=== PATIENT | male | born 1940 | race Caucasian/White ===

== ENCOUNTER 2020-08-22 15:33 | Inpatient (IN) | payer MEDICARE, MEDICAID ==
[~2020-08-22] VITALS: Ht 177.8 cm; Wt 45.4 kg
[~2020-08-22 15:33] MED LIST: DOCU-150 PO; GABA-531 PO; HYDR-523 PO; MEGE400O PO; METO-293 PO; OLAN5TAB26 PO; PANT40TA4 PO; PHEN100C4 PO; SERT100T PO
[2020-08-22] MEDS ORDERED: IPRATROPIUM BROMIDE (0.02%) 0.5MG/2.5ML NEB HHN STA (16:34)
[2020-08-22] MEDS ORDERED: ALBUTEROL (0.083%) 2.5MG/3ML NEB HHN STA (16:34)
[2020-08-22 17:03] LABS: BG BASE EXCESS 0.3 mmol/L (-2.0-2.0); BG CARBOXYHEMOGLOBIN 0.1 % (0.5-1.5); BG DEOXYHEMOGLOBIN 1.2 % (0.0-5.0); BG HCO3 ACT 19.3 mmol/L (22.0-26.0); BG METHEMOGLOBIN 0.2 % (0.0-1.5); BG OXYGEN SATURATION 98.8 % (92.0-98.5); BG OXYHEMOGLOBIN 98.5 % (94.0-97.0); BG PCO2 19.1 mmHg (35.0-45.0); BG PH 7.622 (7.350-7.450); BG PO2 125.9 mmHg (75.0-100.0); BG SAMPLE SITE RIGHT RADIAL; BG TOTAL HEMOGLOBIN 13.3 g/dL (12.0-18.0); BG VENT MODE NASAL CANNULA
[2020-08-23 04:40] LABS: CHLORIDE 106 mEq/L (98-107); HEMATOCRIT. 36.6 % (42.0-52.0); HEMOGLOBIN. 11.8 g/dL (14.0-18.0); MEAN CORPUSCULAR HEMOGLOBIN 26.3 pg (28.0-32.0); MEAN CORPUSCULAR VOLUME 81.3 fL (80.0-94.0); MEAN PLATELET VOLUME 7.2 fl (7.4-10.4); PLATELET 447 x1000/uL (130-400); RED BLOOD CELL COUNT 4.51 mill/uL (4.7-6.1); RED CELL DISTRIBUTION WIDTH 15.1 % (11.6-14.6)
[2020-08-23] MEDS ORDERED: SODIUM CHLORIDE 0.9% 1,000 ML IV ONE (05:15)
[2020-08-23 05:33] LABS: PLATELET ESTIMATE SLIGHTLY INCREASED
[2020-08-23] MEDS ORDERED: GABA-531 MT (10:17)
[2020-08-23] MEDS ORDERED: FINA5TAB11 MT (10:17)
[2020-08-23] MEDS ORDERED: TAMS-11 MT (10:17)
[2020-08-23] MEDS ORDERED: POLY17PO28 PO (10:17)
[2020-08-23 10:30] VITALS: BP 96/61
[2020-08-23] MEDS ORDERED: ACETAMINOPHEN 325MG TABLET PO PRN ×2 (11:00)
[2020-08-23] MEDS ORDERED: ONDANSETRON HCL 4MG/2ML INJ IV PRN (11:00)
[2020-08-23] MEDS ORDERED: GUAIFENESIN 200MG/10ML SUGAR FREE UDC PO PRN (11:00)
[2020-08-23] MEDS ORDERED: CLONIDINE 0.1MG TABLET PO PRN (11:00)
[2020-08-23] MEDS ORDERED: DIPHENHYDRAMINE 50MG/ML VIAL IV PRN (11:00)
[2020-08-23 12:00] VITALS: BP_SYST 111; BP_SYST 96; BP_DIAS 41; BP_DIAS 61
[2020-08-23] MEDS ORDERED: MVI, ADULT NO.1 10 ML, FOLIC ACID 1 MG, THIAMINE HCL 100 MG in SODIUM CHLORIDE 0.9% 1,0... IV SCH ×4 (12:00)
[2020-08-23 14:15] VITALS: BP 99/61
[2020-08-23] MEDS: ENOXAPARIN 40MG/0.4ML SYR SUBCUT SCH (14:33)
[2020-08-23] MEDS: LEVOFLOXACIN 500MG PREMIX 100 ML IV SCH (14:33)
[2020-08-23] MEDS: SODIUM CHLORIDE 0.9% INJ 3ML FLUSH IVF SCH ×2 (14:34→21:36)
[2020-08-23 16:00] VITALS: BP 110/72
[2020-08-23] MEDS ORDERED: MAGNESIUM HYDROXIDE 400MG/5ML 30ML UDC PO PRN (17:45)
[2020-08-23] MEDS: LORAZEPAM 0.5MG TABLET PO PRN (18:51)
[2020-08-23 20:28] VITALS: BP 112/44
[2020-08-23] MEDS ORDERED: ZOLPIDEM TARTRATE 5MG TABLET PO PRN (21:00)
[2020-08-23] MEDS: INSULIN LISPRO 100 UNITS/ML SUBCUT SCH (21:00)
[2020-08-23] MEDS: GABAPENTIN 300MG CAPSULE PO SCH (21:35)
[2020-08-23] MEDS: BLOOD SUGAR DIAGNOSTIC STRIP TEST SCH (21:36)
[2020-08-24 04:00] VITALS: BP 120/88
[2020-08-24] MEDS: LORAZEPAM 0.5MG TABLET PO PRN (04:58)
[2020-08-24] MEDS: GABAPENTIN 300MG CAPSULE PO SCH ×3 (05:16→20:02)
[2020-08-24] MEDS: SODIUM CHLORIDE 0.9% INJ 3ML FLUSH IVF SCH ×3 (05:16→20:02)
[2020-08-24] MEDS: BLOOD SUGAR DIAGNOSTIC STRIP TEST SCH ×4 (05:48→20:02)
[2020-08-24] MEDS: DEXTROSE 50% WATER 50ML SYRINGE IV PRN ×2 (05:56→11:25)
[2020-08-24 06:41] LABS: BASOPHILS % 0.3 % (0.0-2.0); CHLORIDE 111 mEq/L (98-107); EOSINOPHILS % 0.3 % (0.0-5.0); HEMATOCRIT. 34.4 % (42.0-52.0); HEMOGLOBIN. 11.4 g/dL (14.0-18.0); LYMPHOCYTES % 7.8 % (20.0-50.0); MEAN CORPUSCULAR HEMOGLOBIN 26.8 pg (28.0-32.0); MEAN CORPUSCULAR VOLUME 81.1 fL (80.0-94.0); MEAN PLATELET VOLUME 7.5 fl (7.4-10.4); MONOCYTES % 9.9 % (2.0-8.0); NEUTROPHILS % 81.7 % (40.0-76.0); PLATELET 382 x1000/uL (130-400); RED BLOOD CELL COUNT 4.24 mill/uL (4.7-6.1); RED CELL DISTRIBUTION WIDTH 15.2 % (11.6-14.6)
[2020-08-24] MEDS: INSULIN LISPRO 100 UNITS/ML SUBCUT SCH ×4 (07:10→20:03)
[2020-08-24 08:00] VITALS: BP 94/49
[2020-08-24] MEDS: FINASTERIDE 5MG TABLET PO SCH ×2 (09:00→09:02)
[2020-08-24] MEDS: DOCUSATE SODIUM 250MG CAPSULE PO SCH ×2 (09:00→09:02)
[2020-08-24] MEDS: TAMSULOSIN HCL 0.4MG SR CAPSULE PO SCH (09:00)
[2020-08-24] MEDS: ENOXAPARIN 40MG/0.4ML SYR SUBCUT SCH ×2 (09:00→09:01)
[2020-08-24 12:00] VITALS: BP 108/43
[2020-08-24] MEDS: LEVOFLOXACIN 500MG PREMIX 100 ML IV SCH (12:36)
[2020-08-24 16:00] VITALS: BP 104/54
[2020-08-24 20:45] VITALS: BP 103/46
[2020-08-25 04:00] VITALS: BP 105/48
[2020-08-25] MEDS: INSULIN LISPRO 100 UNITS/ML SUBCUT SCH ×3 (06:32→21:00)
[2020-08-25] MEDS: GABAPENTIN 300MG CAPSULE PO SCH ×3 (06:32→21:05)
[2020-08-25] MEDS: BLOOD SUGAR DIAGNOSTIC STRIP TEST SCH ×3 (06:32→21:06)
[2020-08-25] MEDS: SODIUM CHLORIDE 0.9% INJ 3ML FLUSH IVF SCH ×3 (06:32→21:06)
[2020-08-25 08:24] VITALS: BP 95/43
[2020-08-25] MEDS: FINASTERIDE 5MG TABLET PO SCH (08:31)
[2020-08-25] MEDS: TAMSULOSIN HCL 0.4MG SR CAPSULE PO SCH (08:32)
[2020-08-25] MEDS: DOCUSATE SODIUM 250MG CAPSULE PO SCH (08:33)
[2020-08-25] MEDS: ENOXAPARIN 40MG/0.4ML SYR SUBCUT SCH (08:33)
[2020-08-25 09:36] LABS: BG BASE EXCESS -0.4 mmol/L (-2.0-2.0); BG CARBOXYHEMOGLOBIN 0.8 % (0.5-1.5); BG DEOXYHEMOGLOBIN 2.7 % (0.0-5.0); BG FRACTION INSPIRED OXYGEN 21; BG HCO3 ACT 23.3 mmol/L (22.0-26.0); BG METHEMOGLOBIN 0.2 % (0.0-1.5); BG OXYGEN SATURATION 97.3 % (92.0-98.5); BG OXYHEMOGLOBIN 96.3 % (94.0-97.0); BG PCO2 35.1 mmHg (35.0-45.0); BG PH 7.439 (7.350-7.450); BG PO2 88.5 mmHg (75.0-100.0); BG SAMPLE SITE RIGHT BRACHIAL; BG VENT MODE ROOM AIR
[2020-08-25 12:00] VITALS: BP 86/48
[2020-08-25] MEDS: LEVOFLOXACIN 500MG PREMIX 100 ML IV SCH (12:12)
[2020-08-25] MEDS ORDERED: CEFTRIAXONE 1 G PREMIX 50 ML IV SCH (13:30)
[2020-08-25] MEDS: AZITHROMYCIN 500 MG TABLET PO SCH (15:42)
[2020-08-25] MEDS: CEFTRIAXONE 1,000 MG in DEXTROSE 5% WATER 50 ML IV SCH (15:42)
[2020-08-25 15:56] LABS: HEMATOCRIT. 34.8 % (42.0-52.0); HEMOGLOBIN. 11.7 g/dL (14.0-18.0); MEAN CORPUSCULAR VOLUME 80.5 fL (80.0-94.0); MEAN PLATELET VOLUME 7.2 fl (7.4-10.4); PLATELET 340 x1000/uL (130-400); RED BLOOD CELL COUNT 4.33 mill/uL (4.7-6.1); RED CELL DISTRIBUTION WIDTH 15.1 % (11.6-14.6)
[2020-08-25 16:00] VITALS: BP 100/57
[2020-08-25 16:36] LABS: CHLORIDE 109 mEq/L (98-107)
[2020-08-25 16:38] LABS: PLATELET ESTIMATE NORMAL
[2020-08-25] MEDS: IPRATROPIUM/ALBUTEROL 0.5-3(2.5)MG/3ML NEB HHN PRN (16:45)
[2020-08-25] MEDS: SODIUM CHLORIDE 10% FOR INH 15ML VIAL NEB INH SCH (16:48)
[2020-08-25 20:00] VITALS: BP 101/66
[2020-08-25] MEDS: GUAIFENESIN 600MG ER TABLET PO SCH (21:05)
[2020-08-25] MEDS: IPRATROPIUM/ALBUTEROL 0.5-3(2.5)MG/3ML NEB HHN SCH (21:53)
[2020-08-26] VITALS (7 sets, daily range): BP systolic 78–117; BP diastolic 36–66
[2020-08-26] MEDS: SODIUM CHLORIDE 3% FOR INH 4ML UD NEB INH SCH ×3 (02:10→21:23)
[2020-08-26] MEDS: IPRATROPIUM/ALBUTEROL 0.5-3(2.5)MG/3ML NEB HHN SCH ×4 (02:40→21:23)
[2020-08-26] MEDS: SODIUM CHLORIDE 0.9% INJ 3ML FLUSH IVF SCH ×3 (06:00→22:03)
[2020-08-26] MEDS: GABAPENTIN 300MG CAPSULE PO SCH ×3 (06:00→22:03)
[2020-08-26] MEDS: BLOOD SUGAR DIAGNOSTIC STRIP TEST SCH ×4 (06:11→21:57)
[2020-08-26] MEDS: INSULIN LISPRO 100 UNITS/ML SUBCUT SCH ×4 (06:11→21:00)
[2020-08-26] MEDS: SODIUM CHLORIDE 10% FOR INH 15ML VIAL NEB INH SCH ×2 (07:43→14:40)
[2020-08-26] MEDS: BACITRACIN 15GM TUBE TOP SCH (10:23)
[2020-08-26] MEDS: TAMSULOSIN HCL 0.4MG SR CAPSULE PO SCH (10:23)
[2020-08-26] MEDS: ENOXAPARIN 40MG/0.4ML SYR SUBCUT SCH (10:23)
[2020-08-26] MEDS: DOCUSATE SODIUM 250MG CAPSULE PO SCH (10:23)
[2020-08-26] MEDS: FINASTERIDE 5MG TABLET PO SCH (10:24)
[2020-08-26] MEDS: AZITHROMYCIN 500 MG TABLET PO SCH (10:24)
[2020-08-26] MEDS: GUAIFENESIN 600MG ER TABLET PO SCH ×2 (10:24→22:03)
[2020-08-26] MEDS ORDERED: POTASSIUM CHLORIDE 20MEQ TABLET SR PO NR (10:45)
[2020-08-26] MEDS ORDERED: DEXT 5%/0.45% NACL KCL 10MEQ/L 1,000 ML IV ONE (14:00)
[2020-08-26] MEDS ORDERED: ALBUMIN HUMAN 25GM/500ML (5%) IV NR (14:00)
[2020-08-26] MEDS: ACETYLCYSTEINE 100MG/ML 10% VIAL 4ML INH SCH (14:31)
[2020-08-26] MEDS: CEFTRIAXONE 1,000 MG in DEXTROSE 5% WATER 50 ML IV SCH (15:06)
[2020-08-26 15:56] LABS: HEPATITIS B SURFACE ANTIGEN NEGATIVE
[2020-08-26 16:26] LABS: HEPATITIS A AB IGM NEGATIVE (NEGATIVE)
[2020-08-27] VITALS: BP 88/33
[2020-08-27] MEDS: ACETYLCYSTEINE 100MG/ML 10% VIAL 4ML INH SCH ×3 (02:10→12:53)
[2020-08-27] MEDS: IPRATROPIUM/ALBUTEROL 0.5-3(2.5)MG/3ML NEB HHN SCH ×3 (02:10→21:41)
[2020-08-27 04:00] VITALS: BP_SYST 88; BP_SYST 89; BP_DIAS 33; BP_DIAS 42
[2020-08-27] MEDS: GABAPENTIN 300MG CAPSULE PO SCH ×3 (05:48→22:34)
[2020-08-27] MEDS: SODIUM CHLORIDE 0.9% INJ 3ML FLUSH IVF SCH ×3 (05:48→22:35)
[2020-08-27] MEDS: BLOOD SUGAR DIAGNOSTIC STRIP TEST SCH (06:08)
[2020-08-27] MEDS: INSULIN LISPRO 100 UNITS/ML SUBCUT SCH (06:08)
[2020-08-27 08:00] VITALS: BP 96/41
[2020-08-27] MEDS: DOCUSATE SODIUM 250MG CAPSULE PO SCH (09:05)
[2020-08-27] MEDS: AZITHROMYCIN 500 MG TABLET PO SCH (09:05)
[2020-08-27] MEDS: GUAIFENESIN 600MG ER TABLET PO SCH ×2 (09:06→21:00)
[2020-08-27] MEDS: BACITRACIN 15GM TUBE TOP SCH (09:06)
[2020-08-27] MEDS: TAMSULOSIN HCL 0.4MG SR CAPSULE PO SCH (09:06)
[2020-08-27] MEDS: ENOXAPARIN 30MG/0.3ML SYR SUBCUT SCH (09:06)
[2020-08-27] MEDS: FINASTERIDE 5MG TABLET PO SCH (09:06)
[2020-08-27] MEDS: IPRATROPIUM/ALBUTEROL 0.5-3(2.5)MG/3ML NEB HHN PRN (09:17)
[2020-08-27] MEDS: SODIUM CHLORIDE 3% FOR INH 4ML UD NEB INH SCH (10:15)
[2020-08-27 12:00] VITALS: BP 95/36
[2020-08-27] MEDS: CEFTRIAXONE 1,000 MG in DEXTROSE 5% WATER 50 ML IV SCH (15:51)
[2020-08-27 16:00] VITALS: BP 89/37
[2020-08-27 20:00] VITALS: BP 99/44
[2020-08-28] VITALS: BP 83/33
[2020-08-28] MEDS: IPRATROPIUM/ALBUTEROL 0.5-3(2.5)MG/3ML NEB HHN SCH ×4 (02:17→20:46)
[2020-08-28] MEDS: ACETYLCYSTEINE 100MG/ML 10% VIAL 4ML INH SCH ×4 (02:17→20:47)
[2020-08-28 04:00] VITALS: BP 99/41
[2020-08-28 08:00] VITALS: BP 96/47
[2020-08-28 08:30] LABS: BASOPHILS % 0.2 % (0.0-2.0); EOSINOPHILS % 1.4 % (0.0-5.0); HEMATOCRIT. 33.2 % (42.0-52.0); HEMOGLOBIN. 10.8 g/dL (14.0-18.0); LYMPHOCYTES % 9.7 % (20.0-50.0); MEAN CORPUSCULAR HEMOGLOBIN 26.4 pg (28.0-32.0); MEAN CORPUSCULAR VOLUME 80.8 fL (80.0-94.0); MEAN PLATELET VOLUME 7.3 fl (7.4-10.4); NEUTROPHILS % 75.7 % (40.0-76.0); PLATELET 290 x1000/uL (130-400); RED CELL DISTRIBUTION WIDTH 15.5 % (11.6-14.6)
[2020-08-28 08:35] LABS: QFT MITOGEN VALUE 0.23 IU/mL (.); QFT TB GOLD PLUS Indeterminate (Negative); QFT TB1 AG VALUE 0.05 IU/mL (.)
[2020-08-28 08:58] LABS: CHLORIDE 109 mEq/L (98-107)
[2020-08-28] MEDS: DOCUSATE SODIUM 250MG CAPSULE PO SCH (11:19)
[2020-08-28] MEDS: TAMSULOSIN HCL 0.4MG SR CAPSULE PO SCH (11:20)
[2020-08-28] MEDS: GUAIFENESIN 600MG ER TABLET PO SCH ×2 (11:20→21:23)
[2020-08-28] MEDS: AZITHROMYCIN 500 MG TABLET PO SCH (11:20)
[2020-08-28] MEDS: FINASTERIDE 5MG TABLET PO SCH (11:20)
[2020-08-28] MEDS: BACITRACIN 15GM TUBE TOP SCH (11:20)
[2020-08-28] MEDS: ENOXAPARIN 30MG/0.3ML SYR SUBCUT SCH (11:23)
[2020-08-28 12:00] VITALS: BP 96/48
[2020-08-28] MEDS: GABAPENTIN 300MG CAPSULE PO SCH ×2 (13:36→21:23)
[2020-08-28] MEDS: SODIUM CHLORIDE 0.9% INJ 3ML FLUSH IVF SCH ×2 (13:36→21:23)
[2020-08-28 16:00] VITALS: BP 104/47
[2020-08-28] MEDS: CEFTRIAXONE 1,000 MG in DEXTROSE 5% WATER 50 ML IV SCH (16:03)
[2020-08-28] MEDS ORDERED: RIFAXIMIN 200MG TABLET PO SCH (17:15)
[2020-08-28] MEDS ORDERED: VANCOMYCIN 750 MG PREMIX 150 ML IV SCH (18:00)
[2020-08-28] MEDS: VANCOMYCIN 500 MG PREMIX 100 ML IV SCH (18:01)
[2020-08-28] MEDS: ETHAMBUTOL HCL 400MG TABLET PO SCH (18:02)
[2020-08-28] MEDS: ISONIAZID 300MG TABLET PO SCH (18:02)
[2020-08-28 20:00] VITALS: BP_SYST 33; BP_SYST 89; BP_DIAS 44
[2020-08-28] MEDS: RIFAMPIN 150MG CAPSULE PO SCH (20:00)
[2020-08-29] VITALS: BP 91/44
[2020-08-29] MEDS: IPRATROPIUM/ALBUTEROL 0.5-3(2.5)MG/3ML NEB HHN SCH ×4 (02:29→21:52)
[2020-08-29 04:00] VITALS: BP 90/44
[2020-08-29] MEDS: VANCOMYCIN 500 MG PREMIX 100 ML IV SCH ×3 (06:23→18:17)
[2020-08-29] MEDS: SODIUM CHLORIDE 0.9% INJ 3ML FLUSH IVF SCH ×2 (06:26→15:58)
[2020-08-29] MEDS: GABAPENTIN 300MG CAPSULE PO SCH ×3 (06:26→21:31)
[2020-08-29 08:00] VITALS: BP 108/55
[2020-08-29] MEDS ORDERED: PYRIMETHAMINE 25 MG PO SCH (09:00)
[2020-08-29] MEDS: ACETYLCYSTEINE 100MG/ML 10% VIAL 4ML INH SCH ×3 (09:48→21:52)
[2020-08-29] MEDS: ETHAMBUTOL HCL 400MG TABLET PO SCH ×2 (10:00→18:17)
[2020-08-29] MEDS: DOCUSATE SODIUM 250MG CAPSULE PO SCH (10:00)
[2020-08-29] MEDS: AZITHROMYCIN 500 MG TABLET PO SCH (10:00)
[2020-08-29] MEDS: TAMSULOSIN HCL 0.4MG SR CAPSULE PO SCH (10:01)
[2020-08-29] MEDS: GUAIFENESIN 600MG ER TABLET PO SCH ×2 (10:01→21:31)
[2020-08-29] MEDS: FINASTERIDE 5MG TABLET PO SCH (10:01)
[2020-08-29] MEDS: ISONIAZID 300MG TABLET PO SCH (10:02)
[2020-08-29] MEDS: RIFAMPIN 150MG CAPSULE PO SCH (10:02)
[2020-08-29] MEDS: ENOXAPARIN 30MG/0.3ML SYR SUBCUT SCH (10:02)
[2020-08-29] MEDS: PYRIDOXINE HCL 50MG TABLET PO SCH (10:02)
[2020-08-29] MEDS: BACITRACIN 15GM TUBE TOP SCH (10:03)
[2020-08-29 12:00] VITALS: BP 111/60
[2020-08-29] MEDS: CEFTRIAXONE 1,000 MG in DEXTROSE 5% WATER 50 ML IV SCH (15:57)
[2020-08-29] MEDS: PYRAZINAMIDE 500MG TABLET PO SCH (15:57)
[2020-08-29 16:00] VITALS: BP 109/56
[2020-08-29 20:00] VITALS: BP 99/48
[2020-08-30] VITALS (7 sets, daily range): BP systolic 94–126; BP diastolic 47–66
[2020-08-30] MEDS: IPRATROPIUM/ALBUTEROL 0.5-3(2.5)MG/3ML NEB HHN SCH ×4 (01:16→21:28)
[2020-08-30] MEDS: SODIUM CHLORIDE 0.9% INJ 3ML FLUSH IVF SCH ×4 (05:47→21:31)
[2020-08-30] MEDS: VANCOMYCIN 500 MG PREMIX 100 ML IV SCH (06:00)
[2020-08-30] MEDS: GABAPENTIN 300MG CAPSULE PO SCH ×3 (06:00→21:28)
[2020-08-30 07:02] LABS: CHLORIDE 101 mEq/L (98-107)
[2020-08-30] MEDS: ETHAMBUTOL HCL 400MG TABLET PO SCH ×2 (08:42→16:45)
[2020-08-30] MEDS: ISONIAZID 300MG TABLET PO SCH (08:42)
[2020-08-30] MEDS: GUAIFENESIN 600MG ER TABLET PO SCH ×2 (08:42→21:28)
[2020-08-30] MEDS: DOCUSATE SODIUM 250MG CAPSULE PO SCH (08:42)
[2020-08-30] MEDS: FINASTERIDE 5MG TABLET PO SCH (08:42)
[2020-08-30] MEDS: PYRAZINAMIDE 500MG TABLET PO SCH (08:42)
[2020-08-30] MEDS: AZITHROMYCIN 500 MG TABLET PO SCH (08:43)
[2020-08-30] MEDS: RIFAMPIN 150MG CAPSULE PO SCH (08:43)
[2020-08-30] MEDS: PYRIDOXINE HCL 50MG TABLET PO SCH (08:43)
[2020-08-30] MEDS: TAMSULOSIN HCL 0.4MG SR CAPSULE PO SCH (08:43)
[2020-08-30] MEDS: BACITRACIN 15GM TUBE TOP SCH (08:44)
[2020-08-30] MEDS: ENOXAPARIN 30MG/0.3ML SYR SUBCUT SCH (08:45)
[2020-08-30] MEDS ORDERED: PROCHLORPERAZINE 10MG/2ML VIAL IM PRN (09:45)
[2020-08-30] MEDS ORDERED: ONDANSETRON HCL 4MG TABLET PO PRN (09:45)
[2020-08-30] MEDS ORDERED: VANCOMYCIN 500 MG PREMIX 100 ML IV SCH (12:00)
[2020-08-30] MEDS: AZITHROMYCIN 250 MG TABLET PO SCH (12:57)
[2020-08-30] MEDS: ACETYLCYSTEINE 100MG/ML 10% VIAL 4ML INH SCH ×3 (13:25→21:34)
[2020-08-30] MEDS: ALPRAZOLAM 0.5 MG TABLET PO PRN (15:24)
[2020-08-31] MEDS: IPRATROPIUM/ALBUTEROL 0.5-3(2.5)MG/3ML NEB HHN SCH ×4 (01:16→21:48)
[2020-08-31 04:00] VITALS: BP 99/52
[2020-08-31] MEDS: GABAPENTIN 300MG CAPSULE PO SCH ×3 (05:50→22:23)
[2020-08-31] MEDS: ACETYLCYSTEINE 100MG/ML 10% VIAL 4ML INH SCH ×2 (07:45→14:26)
[2020-08-31 08:00] VITALS: BP 100/52
[2020-08-31] MEDS: ENOXAPARIN 30MG/0.3ML SYR SUBCUT SCH ×2 (08:37→08:49)
[2020-08-31] MEDS: DOCUSATE SODIUM 250MG CAPSULE PO SCH ×2 (08:37→08:48)
[2020-08-31] MEDS: TAMSULOSIN HCL 0.4MG SR CAPSULE PO SCH ×2 (08:37→08:48)
[2020-08-31] MEDS: FINASTERIDE 5MG TABLET PO SCH ×2 (08:37→08:49)
[2020-08-31] MEDS: AZITHROMYCIN 250 MG TABLET PO SCH ×2 (08:37→08:49)
[2020-08-31] MEDS: PYRAZINAMIDE 500MG TABLET PO SCH ×2 (08:38→08:49)
[2020-08-31] MEDS: RIFAMPIN 150MG CAPSULE PO SCH ×2 (08:38→08:49)
[2020-08-31] MEDS: ISONIAZID 300MG TABLET PO SCH ×2 (08:38→08:49)
[2020-08-31] MEDS: GUAIFENESIN 600MG ER TABLET PO SCH ×2 (08:38→22:23)
[2020-08-31] MEDS: ETHAMBUTOL HCL 400MG TABLET PO SCH ×3 (08:38→17:19)
[2020-08-31] MEDS: PYRIDOXINE HCL 50MG TABLET PO SCH ×2 (08:40→08:49)
[2020-08-31] MEDS: BACITRACIN 15GM TUBE TOP SCH (08:50)
[2020-08-31 12:00] VITALS: BP 110/67
[2020-08-31] MEDS: SODIUM CHLORIDE 0.9% INJ 3ML FLUSH IVF SCH ×3 (14:00→19:37)
[2020-08-31 16:00] VITALS: BP 101/55
[2020-08-31 20:00] VITALS: BP 106/56
[2020-09-01] VITALS (7 sets, daily range): BP systolic 90–157; BP diastolic 42–78
[2020-09-01] MEDS: IPRATROPIUM/ALBUTEROL 0.5-3(2.5)MG/3ML NEB HHN SCH ×5 (01:25→21:26)
[2020-09-01] MEDS: GABAPENTIN 300MG CAPSULE PO SCH ×3 (05:35→21:56)
[2020-09-01 06:49] LABS: HEMATOCRIT. 37.3 % (42.0-52.0); HEMOGLOBIN. 11.8 g/dL (14.0-18.0); MEAN CORPUSCULAR HEMOGLOBIN 25.9 pg (28.0-32.0); MEAN CORPUSCULAR VOLUME 81.8 fL (80.0-94.0); MEAN PLATELET VOLUME 7.4 fl (7.4-10.4); PLATELET 307 x1000/uL (130-400); RED BLOOD CELL COUNT 4.56 mill/uL (4.7-6.1); RED CELL DISTRIBUTION WIDTH 15.9 % (11.6-14.6)
[2020-09-01 07:28] LABS: CHLORIDE 103 mEq/L (98-107)
[2020-09-01] MEDS: GUAIFENESIN 600MG ER TABLET PO SCH ×2 (09:00→21:56)
[2020-09-01] MEDS: ENOXAPARIN 30MG/0.3ML SYR SUBCUT SCH ×2 (09:00→10:15)
[2020-09-01] MEDS: RIFAMPIN 150MG CAPSULE PO SCH (10:13)
[2020-09-01] MEDS: DOCUSATE SODIUM 250MG CAPSULE PO SCH (10:13)
[2020-09-01] MEDS: FINASTERIDE 5MG TABLET PO SCH (10:13)
[2020-09-01] MEDS: PYRIDOXINE HCL 50MG TABLET PO SCH (10:13)
[2020-09-01] MEDS: ISONIAZID 300MG TABLET PO SCH (10:13)
[2020-09-01] MEDS: ETHAMBUTOL HCL 400MG TABLET PO SCH ×2 (10:14→17:20)
[2020-09-01] MEDS: AZITHROMYCIN 250 MG TABLET PO SCH (10:14)
[2020-09-01] MEDS: PYRAZINAMIDE 500MG TABLET PO SCH (10:14)
[2020-09-01] MEDS: TAMSULOSIN HCL 0.4MG SR CAPSULE PO SCH (10:15)
[2020-09-01] MEDS: BACITRACIN 15GM TUBE TOP SCH (10:33)
[2020-09-01] MEDS: ALPRAZOLAM 0.5 MG TABLET PO PRN (10:33)
[2020-09-01] MEDS: SODIUM CHLORIDE 0.9% INJ 3ML FLUSH IVF SCH ×2 (13:57→21:57)
[2020-09-01 14:30] LABS: PLATELET ESTIMATE NORMAL
[2020-09-02] VITALS: BP 90/46
[2020-09-02] MEDS: IPRATROPIUM/ALBUTEROL 0.5-3(2.5)MG/3ML NEB HHN SCH ×4 (00:35→20:34)
[2020-09-02 04:00] VITALS: BP 96/47
[2020-09-02] MEDS: GABAPENTIN 300MG CAPSULE PO SCH ×3 (05:51→22:21)
[2020-09-02] MEDS: SODIUM CHLORIDE 0.9% INJ 3ML FLUSH IVF SCH ×3 (05:51→22:00)
[2020-09-02 08:00] VITALS: BP 99/50
[2020-09-02] MEDS: PYRIDOXINE HCL 50MG TABLET PO SCH (09:27)
[2020-09-02] MEDS: GUAIFENESIN 600MG ER TABLET PO SCH ×2 (09:27→22:21)
[2020-09-02] MEDS: FINASTERIDE 5MG TABLET PO SCH (09:27)
[2020-09-02] MEDS: ETHAMBUTOL HCL 400MG TABLET PO SCH ×2 (09:27→18:36)
[2020-09-02] MEDS: AZITHROMYCIN 250 MG TABLET PO SCH (09:27)
[2020-09-02] MEDS: ISONIAZID 300MG TABLET PO SCH (09:27)
[2020-09-02] MEDS: PYRAZINAMIDE 500MG TABLET PO SCH (09:27)
[2020-09-02] MEDS: DOCUSATE SODIUM 250MG CAPSULE PO SCH (09:27)
[2020-09-02] MEDS: ENOXAPARIN 30MG/0.3ML SYR SUBCUT SCH (09:28)
[2020-09-02] MEDS: TAMSULOSIN HCL 0.4MG SR CAPSULE PO SCH (09:28)
[2020-09-02 12:00] VITALS: BP 96/48
[2020-09-02] MEDS: RIFAMPIN 150MG CAPSULE PO SCH (13:02)
[2020-09-02] MEDS: BACITRACIN 15GM TUBE TOP SCH (13:03)
[2020-09-02 16:00] VITALS: BP 82/48
[2020-09-02 19:50] LABS: HEMATOCRIT. 35.3 % (42.0-52.0); HEMOGLOBIN. 11.4 g/dL (14.0-18.0); MEAN CORPUSCULAR HEMOGLOBIN 26.3 pg (28.0-32.0); MEAN CORPUSCULAR VOLUME 81.7 fL (80.0-94.0); PLATELET 287 x1000/uL (130-400); RED BLOOD CELL COUNT 4.33 mill/uL (4.7-6.1); RED CELL DISTRIBUTION WIDTH 15.7 % (11.6-14.6)
[2020-09-02 19:59] LABS: CHLORIDE 102 mEq/L (98-107)
[2020-09-02 20:00] VITALS: BP 90/47
[2020-09-02 20:13] LABS: PLATELET ESTIMATE NORMAL
[2020-09-03] VITALS: BP 96/42
[2020-09-03 04:00] VITALS: BP 80/44
[2020-09-03] MEDS: GABAPENTIN 300MG CAPSULE PO SCH ×3 (05:11→22:56)
[2020-09-03] MEDS: SODIUM CHLORIDE 0.9% INJ 3ML FLUSH IVF SCH ×3 (06:00→22:56)
[2020-09-03 08:00] VITALS: BP 88/45
[2020-09-03] MEDS: BACITRACIN 15GM TUBE TOP SCH (09:00)
[2020-09-03] MEDS: TAMSULOSIN HCL 0.4MG SR CAPSULE PO SCH (09:00)
[2020-09-03] MEDS: ETHAMBUTOL HCL 400MG TABLET PO SCH ×2 (09:28→16:25)
[2020-09-03] MEDS: FINASTERIDE 5MG TABLET PO SCH (09:29)
[2020-09-03] MEDS: PYRIDOXINE HCL 50MG TABLET PO SCH (09:29)
[2020-09-03] MEDS: RIFAMPIN 150MG CAPSULE PO SCH (09:29)
[2020-09-03] MEDS: ISONIAZID 300MG TABLET PO SCH (09:29)
[2020-09-03] MEDS: DOCUSATE SODIUM 250MG CAPSULE PO SCH (09:29)
[2020-09-03] MEDS: AZITHROMYCIN 250 MG TABLET PO SCH (09:29)
[2020-09-03] MEDS: PYRAZINAMIDE 500MG TABLET PO SCH (09:29)
[2020-09-03] MEDS: GUAIFENESIN 600MG ER TABLET PO SCH ×2 (09:29→22:56)
[2020-09-03] MEDS: ENOXAPARIN 30MG/0.3ML SYR SUBCUT SCH (09:30)
[2020-09-03] MEDS: IPRATROPIUM/ALBUTEROL 0.5-3(2.5)MG/3ML NEB HHN SCH ×3 (10:02→20:45)
[2020-09-03 12:00] VITALS: BP 72/41
[2020-09-03] MEDS ORDERED: SODIUM CHLORIDE 10% FOR INH 15ML VIAL NEB INH SCH ×2 (12:00→22:00)
[2020-09-03 19:08] VITALS: BP 86/51
[2020-09-03 20:00] VITALS: BP 92/50
[2020-09-04] MEDS: IPRATROPIUM/ALBUTEROL 0.5-3(2.5)MG/3ML NEB HHN SCH ×4 (03:24→21:28)
[2020-09-04 04:00] VITALS: BP 89/52
[2020-09-04] MEDS: SODIUM CHLORIDE 0.9% INJ 3ML FLUSH IVF SCH ×3 (06:00→22:00)
[2020-09-04 06:26] LABS: BASOPHILS % 0.5 % (0.0-2.0); EOSINOPHILS % 0.3 % (0.0-5.0); HEMATOCRIT. 31.7 % (42.0-52.0); HEMOGLOBIN. 10.6 g/dL (14.0-18.0); LYMPHOCYTES % 9.7 % (20.0-50.0); MEAN CORPUSCULAR HEMOGLOBIN 26.6 pg (28.0-32.0); MEAN CORPUSCULAR VOLUME 79.8 fL (80.0-94.0); MEAN PLATELET VOLUME 7.3 fl (7.4-10.4); MONOCYTES % 14.2 % (2.0-8.0); NEUTROPHILS % 75.3 % (40.0-76.0); PLATELET 274 x1000/uL (130-400); RED BLOOD CELL COUNT 3.98 mill/uL (4.7-6.1)
[2020-09-04] MEDS: GABAPENTIN 300MG CAPSULE PO SCH ×3 (07:00→22:00)
[2020-09-04 08:00] VITALS: BP 90/40
[2020-09-04] MEDS: PYRIDOXINE HCL 50MG TABLET PO SCH (08:42)
[2020-09-04] MEDS: FINASTERIDE 5MG TABLET PO SCH (08:42)
[2020-09-04] MEDS: DOCUSATE SODIUM 250MG CAPSULE PO SCH (08:44)
[2020-09-04] MEDS: GUAIFENESIN 600MG ER TABLET PO SCH ×2 (08:45→21:00)
[2020-09-04] MEDS: ISONIAZID 300MG TABLET PO SCH (08:46)
[2020-09-04] MEDS: PYRAZINAMIDE 500MG TABLET PO SCH (08:50)
[2020-09-04] MEDS: ETHAMBUTOL HCL 400MG TABLET PO SCH ×2 (08:50→17:36)
[2020-09-04] MEDS: ENOXAPARIN 30MG/0.3ML SYR SUBCUT SCH (08:51)
[2020-09-04] MEDS: RIFAMPIN 150MG CAPSULE PO SCH (08:51)
[2020-09-04] MEDS: TAMSULOSIN HCL 0.4MG SR CAPSULE PO SCH (08:52)
[2020-09-04] MEDS: BACITRACIN 15GM TUBE TOP SCH (08:52)
[2020-09-04] MEDS: AZITHROMYCIN 250 MG TABLET PO SCH (08:56)
[2020-09-04 12:00] VITALS: BP 82/46
[2020-09-04 16:00] VITALS: BP 84/46
[2020-09-04 20:00] VITALS: BP 94/49
[2020-09-05] VITALS: BP 91/53
[2020-09-05] MEDS: IPRATROPIUM/ALBUTEROL 0.5-3(2.5)MG/3ML NEB HHN SCH (01:56)
[2020-09-05 04:00] VITALS: BP 88/42
[2020-09-05] MEDS: GABAPENTIN 300MG CAPSULE PO SCH ×2 (07:13→14:00)
[2020-09-05] MEDS: SODIUM CHLORIDE 0.9% INJ 3ML FLUSH IVF SCH (07:13)
[2020-09-05 08:00] VITALS: BP 82/42
[2020-09-05] MEDS: FINASTERIDE 5MG TABLET PO SCH (09:23)
[2020-09-05] MEDS: PYRAZINAMIDE 500MG TABLET PO SCH (09:23)
[2020-09-05] MEDS: ENOXAPARIN 30MG/0.3ML SYR SUBCUT SCH (09:23)
[2020-09-05] MEDS: PYRIDOXINE HCL 50MG TABLET PO SCH (09:24)
[2020-09-05] MEDS: DOCUSATE SODIUM 250MG CAPSULE PO SCH (09:24)
[2020-09-05] MEDS: RIFAMPIN 150MG CAPSULE PO SCH (09:24)
[2020-09-05] MEDS: TAMSULOSIN HCL 0.4MG SR CAPSULE PO SCH (09:25)
[2020-09-05] MEDS: GUAIFENESIN 600MG ER TABLET PO SCH (09:26)
[2020-09-05] MEDS: ISONIAZID 300MG TABLET PO SCH (09:26)
[2020-09-05] MEDS: ETHAMBUTOL HCL 400MG TABLET PO SCH (09:26)
[2020-09-05] MEDS: BACITRACIN 15GM TUBE TOP SCH (09:27)
[2020-09-05 15:15] VITALS: BP 94/56
[2020-09-09 15:42] LABS: QFT MITOGEN VALUE 0.46 IU/mL (.); QFT TB GOLD PLUS Indeterminate (Negative); QFT TB1 AG VALUE 0.04 IU/mL (.)
[2020-09-16 10:32] LABS: HIV SCREEN 4G Non Reactive (Non Reactive)
== END 2020-09-05 15:45 | DRG 189 ==
LOC: ER 15:33 → 7EST 08-23 06:41 → ENRESERV 08-23 08:22 → 8WST 08-25 00:17 → 6EST 09-01 13:50
PROVIDERS: ADMIT Internal Medicine; ATTEND Internal Medicine
DX: J96.01 Acute respiratory failure with hypoxia (principal); E43 Unspecified severe protein-calorie malnutrition; R65.11 Systemic inflammatory response syndrome (SIRS) of non-infectious origin with acute organ dysfunction; E87.3 Alkalosis; Z68.1 Body mass index [BMI] 19.9 or less, adult; A15.0 Tuberculosis of lung; F41.1 Generalized anxiety disorder; N40.0 Benign prostatic hyperplasia without lower urinary tract symptoms; F20.9 Schizophrenia, unspecified; B19.20 Unspecified viral hepatitis C without hepatic coma; J44.9 Chronic obstructive pulmonary disease, unspecified; E11.40 Type 2 diabetes mellitus with diabetic neuropathy, unspecified; Z20.828 Contact with and (suspected) exposure to other viral communicable diseases; Z78.9 Other specified health status; Z79.899 Other long term (current) drug therapy; Z86.11 Personal history of tuberculosis; Z87.891 Personal history of nicotine dependence; G40.909 Epilepsy, unspecified, not intractable, without status epilepticus
CPT/HCPCS: 36415; 36600; 71045; 71250; 80048; 80053; 80076; 80202; 82105; 82375; 82378; 82805; 82962; 83036; 83605; 83735; 83880; 84484; 85025; 85651; 86480; 86635; 86705; 86709; 86803; 87340; 87389; 87426; 87635; 87899; 93005; 94003; 94640; 99285; A6261; C1893; J0696; J1650; J1815; J1956; J3370; J3411; J3490; J7030; J7040; J7060; J7131; J7608; P9041; Q0162